=== PATIENT | male | born 1950 | race Caucasian/White ===

== ENCOUNTER → 2021-01-03 | Outpatient (CLI) | payer OTHER | END | disposition home or self-care (01) | LOC: PPH VACUNA | PROVIDERS: ATTEND Emergency Medicine Pediatric Emergency Medicine | DX: Z23 Encounter for immunization (principal) ==

== ENCOUNTER 2022-06-03 10:38 | Outpatient (CLI) | payer OTHER | END 2022-06-03 10:53 | disposition home or self-care (01) | LOC: PPH VACUNA 10:38 | PROVIDERS: ATTEND Emergency Medicine Pediatric Emergency Medicine | DX: Z23 Encounter for immunization (principal) ==

== ENCOUNTER 2022-12-16 11:00 | Outpatient (CLI) | payer OTHER | END 2022-12-16 11:15 | disposition home or self-care (01) | LOC: PPH VACUNA 11:00 | PROVIDERS: ATTEND Emergency Medicine Pediatric Emergency Medicine | DX: Z23 Encounter for immunization (principal) ==